=== PATIENT | male | born 1940 | race Caucasian/White ===

== ENCOUNTER 2018-03-30 16:56 | Emergency (ER) | payer MEDICARE, OTHER, SELFPAY ==
[2018-03-30 17:09] VITALS: BP 138/83; PULSE 84; RESP 18; TEMP 36.9; O2SAT 99
--- NOTE | 2018-03-30 19:11 | ED_ITS ---
HPI - Epistaxis General Chief complaint: Nasal Problem Stated complaint: CAN'T STOP NOSE BLEED Time Seen by Provider: 03/30/18 17:40 Source: patient Mode of arrival: ambulatory Limitations: no limitations History of Present Illness HPI Narrative: Patient is a 77-year-old male presenting with nose bleed off of a left eye. His eye lactic she says the bleeding for the last 3 hr. He cannot get it to stop. It is not dripping down his throat he has no trouble breathing. MD complaint: epistaxis Location: left nostril Related Data Previous Rx's Medication Instructions Recorded amoxicillin 500 mg PO TID 7 Days #21 cap 03/30/18 Review of Systems Review of Systems GENERAL: Denies chills,fever HEENT: See HPI RESPIRATORY: Denies dyspnea, cough, wheezing CARDIOVASCULAR: Denies chest pain, palpitations GASTROINTESTINAL: Denies nausea, vomiting MUSCULOSKELETAL: Denies extremity pain, injury SKIN: No rash, no laceration, no pruritus NEUROLOGIC: Denies weakness, dizziness, headache, numbness 8 point review of systems is negative except for those stated above and HPI PFSH Social History Smoking Status: Never smoker Exam Initial Vital Signs Initial Vital Signs: Vital Signs Temperature 98.4 F 03/30/18 17:09 Pulse Rate 84 03/30/18 17:09 Respiratory Rate 18 03/30/18 17:09 Blood Pressure 138/83 03/30/18 17:09 Pulse Oximetry 99 03/30/18 17:09 GENERAL: Well-appearing, well-nourished and in no acute distress. CARDIOVASCULAR: peripheral pulses in tact, cap refill <2 sec RESPIRATORY: No respiratory distress, speaks in full sentences without difficulty EXTREMITIES: Normal range of motion, no clubbing or edema. Neurovascularly intact NEUROLOGICAL: Cranial nerves II through XII grossly intact. Normal gait and speech. SKIN: Warm, dry, no petechiae, no rashes or lesions. HENMT Nose: epistaxis (Left side, no anterior site identified) Procedures Epistaxis Control Nostril: left Nose Prepped With: oxymetazoline Direct Inspection: yes Clots Removed by: blowing nose Cautery Used: none Device Inserted: hemostatic balloon Patient Tolerated Procedure: well Course Consultations Time: 19:09 Vital Signs - 8 hr 03/30/18 17:09 Temperature 98.4 F Pulse Rate 84 Respiratory Rate 18 Blood Pressure 138/83 Pulse Oximetry 99 MDM - Epistaxis MDM Narrative Medical decision making narrative: Initial rhino rocket placed for 30 min bleeding appeared to have stopped when a rocket was removed the bleeding continued. Rhino rocket was replaced. Bleeding stopped. Dr. Christiano GILLILAND was notified. Recommend leaving rhino rocket in for 3 days with amoxicillin and follow up on Tuesday in the office. Patient is given a syringe and instructed on how to deflate if absolutely necessary and a nasal clamp. Discharge Plan Departure Patient Disposition: Home Clinical Impression: Epistaxis Discharge Date/Time: 03/30/18 19:39 Interventions: ED Discharge Assessment Last Done: 03/30/18 19:38 Instructions: Nosebleed Activity Restrictions/Additional Instructions: *You have been diagnosed with nose bleed *What to do: Keep packing in for 2-3 days *Continue to take medications as directed -amoxicillin 500 mg 3 times a day *Follow up with ENT on Tuesday, call 1st thing Tuesday morning at 8:30 a.m. *Return to ER if you should have persistent ongoing bleeding or any new, worsening or concerning symptoms Prescriptions: New amoxicillin 500 mg capsule 500 mg PO TID 7 Days Qty: 21 RF: 0 Referrals: [facility] [Outside]
[2018-03-30 19:38] VITALS: BP 137/83; PULSE 57; RESP 16; O2SAT 100
== END 2018-03-30 19:39 | disposition home or self-care (01) ==
PROVIDERS: Emergency Provider Emergency Medicine
DX: R04.0 Epistaxis (principal)
CPT/HCPCS: 99282

== ENCOUNTER 2019-02-19 14:05 | Emergency (ER) | payer MEDICARE, OTHER, SELFPAY ==
[2019-02-19 14:08] VITALS: BP 133/73; PULSE 70; RESP 14; TEMP 36.7; O2SAT 99
--- NOTE | 2019-02-19 14:11 | DI.US.S_ITS ---
PROCEDURE: US PERIPH VENOUS LOW EXTREM LT INDICATIONS: LEFT LEG PAIN AND SWELLING TECHNIQUE: Real-time imaging, as well as color and pulse Doppler interrogation, were performed of the lower extremity deep veins from the inguinal ligament to the popliteal fossa. COMPARISON: None. FINDINGS: The common femoral, femoral and popliteal veins are normally compressible, and free of intraluminal thrombus. Color and pulse Doppler demonstrate normal phasic intraluminal flow. There is normal augmentation response to distal compression maneuver. There is an ovoid area of decreased echogenicity and is moderately heterogeneous and does not demonstrate internal vascularity that measures 2.3 x 1.9 x 1.1 cm it is located along the left lateral aspect of the lower leg. IMPRESSION: 1. No evidence of left lower extremity deep vein thrombosis. 2. Small intramuscular hematoma versus intramuscular partial-thickness tearing involving the lateral left lower leg at the area of concern. MRI with contrast would be helpful for confirmation, if indicated. Dictated by: Dario Ochoa M.D. on 02/19/2019 at 14:31 Approved by: Dario Ochoa M.D. on 02/19/2019 at 14:32
--- NOTE | 2019-02-19 16:02 | ED.EXTPRO ---
HPI - Extremity Problem <ELISEO Lind - Last Filed: 02/20/19 02:26> General Chief complaint: Extremity Problem,Nontraumatic Stated complaint: Thinks torn muscle in Lt calf Time Seen by Provider: 02/19/19 15:14 Source: patient Mode of arrival: ambulatory Limitations: no limitations History of Present Illness HPI Narrative: This is a 78-year-old, who is very active, nonsmoker, with history of CVAs presents with left lateral calf pain, swelling, redness for the last 4 days. He takes daily Plavix and baby aspirin since his stroke 3 years ago. Patient reports he had traveled from [place] to [place] for camping trip involved in long distance bike riding. He reports his pain is increased with dorsiflex of left foot. He denies any open wound or trauma/injuries in left leg. The patient reports pain started after riding bike for a long distance. He does not reports fever, chills, nausea, vomiting, short of breath, chest pain, dizziness. The patient reports the pain and swelling had improved since the initial onset. He reports was concerned for DVT and is here for an evaluation. His primary care physician is at [facility]. Related Data Allergies Allergy/AdvReac Type Severity Reaction Status Date / Time No Known Drug Allergies Allergy Verified 02/19/19 14:11 Review of Systems <ELISEO Lind - Last Filed: 02/20/19 02:26> Review of Systems General: Denies fever, chills, fatigue, malaise, sweats. HEENT: Denies sinus pain, ear pain, sore throat, difficulty swallowing, dizziness. Respiratory: Denies dyspnea, cough, wheezing, hemoptysis, sputum. Cardiovascular: Denies chest pain, palpitations, orthopnea, edema. Gastrointestinal: Denies nausea, vomiting, abdominal pain, diarrhea, constipation, melena. : Denies dysuria, frequency, incontinence, hematuria, urinary retention. Musculoskeletal: see HPI Neurologic: Denies weakness, headache, numbness, change in speech, confusion, seizures, incoordination. Psychiatric: No concerning psychosocial issues. 12-point review of systems is negative except for those stated above. PFSH <ELISEO Lind - Last Filed: 02/20/19 02:26> Medical History (Updated 02/19/19 @ 16:15 by ELISEO Lind) Hyperlipidemia (Acute) BPH (benign prostatic hyperplasia) (Acute) Stroke (Acute) Colon cancer (Inactive) Surgical History (Updated 02/19/19 @ 16:06 by ELISEO Lind) S/P partial resection of colon (Chronic) Social History Smoking Status: Never smoker Social History Smoking Status: Never smoker Exam <ELISEO Lind - Last Filed: 02/20/19 02:26> Narrative Exam Narrative: GEN: Alert, oriented x 3, well appearing and nourished, and in no acute distress. Head: Normal cephalic, atraumatic. No scalp or temporal tenderness, palpable mass or rash. EYES: Pupils are equal, round, and reactive to light and accommodation. Extraocular muscles are intact bilaterally. There is no subconjunctival hemorrhage, exudate and sclera non-icteric. ENT: Bilateral auditory canals and tympanic membranes. Nose without bleeding, purulent discharge. Mucous membrane moist, no mucosal lesion. Throat without erythema, tonsillar hypertrophy or exudate. Uvula in midline, airway patent. Neck: Trachea in midline. No JVD, non-tender without lymphadenopathy. No masses or thyroid megaly. Supple, non-tender and meningeal signs. CARDIAC: Normal regular rate and rhythm without murmurs, gallops, or rubs. No chest wall tenderness. No cyanosis or pallor. Capillary refill is less than 2 seconds. No carotid bruits. RESPIRATORY: Lungs are cleat to auscultate bilaterally. No cough, wheezes, rales, or rhonchi. No stridor, respiratory distress, increase work of breathing, or accessary muscle used. ABD: Abdomen soft, nontender and non-distended. No guarding or rebound tenderness to palpate. Bowel sounds are normal in all 4 quadrants. There is no palpable masses or organomegaly. EXT: Full painless ROM of all extremities with no loss of sensation, strength. L calf with very mild edema. Passive ROM of dorsiflex of L foot increases L calf pain. Bilateral doral pedal pulses are equal. SKIN: Warm, dry, tanned skin. No erythema, lesions or rash noted. BACK: Nontender without deformity or crepitance. No flank tenderness. NEUROLOGICAL: Alert and oriented to place, time and person. Sensation and motor function intact bilaterally. No facial droops, dysphasia. PSYCHIATRIC: Good judgement and reason, without hallucinations, abnormal affect or abnormal behaviors during the examination. Patient is not suicidal. Initial Vital Signs Initial Vital Signs: Vital Signs Temperature 98.1 F 02/19/19 14:08 Pulse Rate 70 02/19/19 14:08 Respiratory Rate 14 02/19/19 14:08 Blood Pressure 133/73 02/19/19 14:08 Pulse Oximetry 99 02/19/19 14:08 <Kobe Ponce DO - Last Filed: 02/21/19 00:07> Initial Vital Signs Initial Vital Signs: Vital Signs Temperature 98.1 F 02/19/19 14:08 Pulse Rate 70 02/19/19 14:08 Respiratory Rate 14 02/19/19 14:08 Blood Pressure 133/73 02/19/19 14:08 Pulse Oximetry 99 02/19/19 14:08 Course <ELISEO Lind - Last Filed: 02/20/19 02:26> Course Narrative: The patient was evaluated with Peripheral ultrasound in the left lower extremity given the long distance travel by car and patient reported left calf pain, swelling, redness without obvious skin injuries or signs of infection while the patient was waiting for unassigned room. Patient reports the swelling and discomfort have been improved since the onset. He has been using ice packs which seems to help with discomfort. Orders Ordered: ED Orders 02/19/19 14:11 US periph venous low extrem lt Stat Vital Signs - 8 hr 02/19/19 14:08 Temperature 98.1 F Pulse Rate 70 Respiratory Rate 14 Blood Pressure 133/73 Pulse Oximetry 99 <Kobe Ponce DO - Last Filed: 02/21/19 00:07> Orders Ordered: ED Orders 02/19/19 14:11 US periph venous low extrem lt Stat Vital Signs - 8 hr 02/19/19 14:08 Temperature 98.1 F Pulse Rate 70 Respiratory Rate 14 Blood Pressure 133/73 Pulse Oximetry 99 MDM - Extremity (Nontraumatic) <ELISEO Lind - Last Filed: 02/20/19 02:26> Differential Diagnosis Likely cellulitis, lower extremity edema, deep vein thrombosis of lower extremity and other (L calf muscle strain) Medical Records Attestation: I reviewed the patient's medical records. Imaging Data Venous US: Radiologist's impression: [address] [address] Ultrasound Report Signed Patient: DANIEL NUNO KMR#: [id number] : 2Acct:[id number] Age/Sex: 78 / MDate of Service: 02/19/19 Loc: ED Accession Number: [id number] Procedure: US periph venous low extrem lt Ordering Provider: Kobe Ponce D.O. PROCEDURE: US PERIPH VENOUS LOW EXTREM LT INDICATIONS: LEFT LEG PAIN AND SWELLING TECHNIQUE: Real-time imaging, as well as color and pulse Doppler interrogation, were performed of the lower extremity deep veins from the inguinal ligament to the popliteal fossa. COMPARISON: None. FINDINGS: The common femoral, femoral and popliteal veins are normally compressible, and free of intraluminal thrombus. Color and pulse Doppler demonstrate normal phasic intraluminal flow. There is normal augmentation response to distal compression maneuver. There is an ovoid area of decreased echogenicity and is moderately heterogeneous and does not demonstrate internal vascularity that measures 2.3 x 1.9 x 1.1 cm it is located along the left lateral aspect of the lower leg. IMPRESSION: 1. No evidence of left lower extremity deep vein thrombosis. 2. Small intramuscular hematoma versus intramuscular partial-thickness tearing involving the lateral left lower leg at the area of concern. MRI with contrast would be helpful for confirmation, if indicated. Dictated by: Dario Ochoa M.D. on 02/19/2019 at 14:31 Approved by: Dario Ochoa M.D. on 02/19/2019 at 14:32 [facility] Narrative Medical decision making narrative: This is a 78-year-old male patient complaining of left lateral calf pain for 4 days after bone duration of bike riding. He had traveled from [place] to [place] by a car 4 days prior to this. Ultrasound test was done and it indicates no DVT but possible small intramuscular hematoma versus intramuscular partial thickness tearing involving his calf muscle. The patient reports pain is about 1/10 at this time and there was no significant swelling appreciated per exam. Patient was advised to continue with his daily medications including Plavix and aspirin for history of CVAs. Patient was advised to decrease significant activity unaffected lack for next couple of days and use cool or warm pack as needed for comfort, swelling, and to promote healing. It is okay to take [id number] Tylenol and/or Motrin for this. Patient was advised to watch for increasing calf pain, tingling numbness, decreased sensation on left lower extremity, weakness, chest pain, breathing trouble and return to ED for evaluation. Otherwise, patient was suggested to follow up with his primary care provider if the pain is persistent for further imaging test. The patient agree with the plan of treatment and no further questions expressed. <Kobe Ponce DO - Last Filed: 02/21/19 00:07> Imaging Data Venous US: Radiologist's impression: [address] [address] Ultrasound Report Signed Patient: DANIEL NUNO KMR#: [id number] : 2Acct:[id number] Age/Sex: 78 / MDate of Service: 02/19/19 Loc: ED Accession Number: [id number] Procedure: US periph venous low extrem lt Ordering Provider: Kobe Ponce D.O. PROCEDURE: US PERIPH VENOUS LOW EXTREM LT INDICATIONS: LEFT LEG PAIN AND SWELLING TECHNIQUE: Real-time imaging, as well as color and pulse Doppler interrogation, were performed of the lower extremity deep veins from the inguinal ligament to the popliteal fossa. COMPARISON: None. FINDINGS: The common femoral, femoral and popliteal veins are normally compressible, and free of intraluminal thrombus. Color and pulse Doppler demonstrate normal phasic intraluminal flow. There is normal augmentation response to distal compression maneuver. There is an ovoid area of decreased echogenicity and is moderately heterogeneous and does not demonstrate internal vascularity that measures 2.3 x 1.9 x 1.1 cm it is located along the left lateral aspect of the lower leg. IMPRESSION: 1. No evidence of left lower extremity deep vein thrombosis. 2. Small intramuscular hematoma versus intramuscular partial-thickness tearing involving the lateral left lower leg at the area of concern. MRI with contrast would be helpful for confirmation, if indicated. Dictated by: Dario Ochoa M.D. on 02/19/2019 at 14:31 Approved by: Dario Ochoa M.D. on 02/19/2019 at 14:32 Discharge Plan Departure Patient Disposition: Home Clinical Impression: Pain of left calf Discharge Date/Time: 02/19/19 16:19 Interventions: ED Discharge Assessment Last Done: 02/19/19 16:14 Instructions: DI for Leg Pain Activity Restrictions/Additional Instructions: You have been diagnosed with L lower calf pain. US test was negative and no indication for blood clots. It indicates small intramuscular hematoma vs. intramuscular partial thickness tear ]. What to do: *Take your medications as directed. You could add [id number], Tylenol as needed for pain. Warm or cold pack would help for healing. *Follow up with your primary care provider in 2-3 days, call for an appointment. Let them know you were seen in the ED and that we asked you to be seen in follow up. *Return to ED if you have any new, worsening, or concerning symptoms, such as [ chest pain, breathing difficulty, fever, increasing pain or any other concerns ]. Referrals: matteo taylor [Other] <Kobe Ponce, - Last Filed: 02/21/19 00:07> Cosign ED Attending Zoey Attestation: I was immediately available in the department for consultation. Documentation has been reviewed. I agree with assessment and plan.
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
[2019-02-19 16:14] VITALS: BP 132/80; PULSE 55; RESP 20; O2SAT 98
== END 2019-02-19 16:19 | disposition home or self-care (01) ==
PROVIDERS: Emergency Provider Nurse Practitioner Family
DX: M79.662 Pain in left lower leg (principal); Z86.73 Personal history of transient ischemic attack (TIA), and cerebral infarction without residual deficits
CPT/HCPCS: 93971; 99282; 99283

== ENCOUNTER 2020-05-12 15:17 | Emergency (ER) | payer MEDICARE, OTHER, SELFPAY ==
[2020-05-12 15:19] VITALS: BP 142/63; PULSE 72; RESP 16; TEMP 36.4; O2SAT 100; BMI 25.5
[2020-05-12 15:32] VITALS: BP 136/77; PULSE 68; O2SAT 99
--- NOTE | 2020-05-12 15:46 | DI.RAD.S_ITS ---
PROCEDURE: XR HIP W PEL IF DONE RT 2V INDICATIONS: R hip pain post fall TECHNIQUE: AP pelvis with lateral view(s) of the right hip(s). COMPARISON: None. FINDINGS: Bones: No fracture. Moderate-severe bilateral hip joint degeneration, right greater than left. Lower lumbar spondylosis and facet arthropathy. Degenerative changes seen at the pubis symphysis. Soft tissues: The visualized bowel gas pattern is normal. No suspicious soft tissue calcifications. IMPRESSION: Bilateral hip joint degeneration and a lower lumbar spondylosis. No fracture identified Dictated by: Angel Mejia M.D. on 05/12/2020 at 16:28 Approved by: Angel Mejia M.D. on 05/12/2020 at 16:30
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
[2020-05-12 16:03] VITALS: PULSE 60; O2SAT 95
[2020-05-12 16:04] VITALS: BP 117/64; PULSE 60; O2SAT 97
[2020-05-12] MEDS: BACITRACIN OINT 0.9 GM PCKT 1 APPLIC TOP (17:02)
[2020-05-12 17:11] VITALS: BP 128/72; PULSE 57; RESP 14; O2SAT 99
== END 2020-05-12 17:11 | disposition home or self-care (01) ==
PROVIDERS: Emergency Provider Nurse Practitioner
DX: S70.11XA Contusion of right thigh, initial encounter (principal); S50.311A Abrasion of right elbow, initial encounter; V19.9XXA Pedal cyclist (driver) (passenger) injured in unspecified traffic accident, initial encounter; Z79.82 Long term (current) use of aspirin; Z79.01 Long term (current) use of anticoagulants
CPT/HCPCS: 73502; 99283

== ENCOUNTER 2020-09-05 20:30 | Emergency (ER) | payer MEDICARE, OTHER, SELFPAY ==
--- NOTE | 2020-09-05 20:38 | DI.RAD.S_ITS ---
PROCEDURE: XR ANKLE LT MIN 3V INDICATIONS: pain in lateral ankle, twisted a few days ago TECHNIQUE: 3 views of the ankle were acquired. COMPARISON: None. FINDINGS: Bones: There is no fracture or dislocation. Ankle mortise is intact. Mild tibiotalar and talonavicular joint degenerative changes. Soft tissues: Diffuse soft tissue swelling with moderate to marked swelling along the lateral aspect. Benign-appearing soft tissue calcifications are noted within the posterior lower leg. IMPRESSION: Soft tissue swelling without evidence of an acute osseous abnormality. Agree with preliminary report. Dictated by: Levi Newell D.O. on 09/06/2020 at 6:59 Approved by: Levi Newell D.O. on 09/06/2020 at 7:01
[2020-09-05 20:39] VITALS: BP 155/75; PULSE 82; RESP 17; TEMP 36.2; O2SAT 99; BMI 25.7
--- NOTE | 2020-09-05 20:50 | ED.LOWEXIN ---
HPI - Extremity Injury (Lower) General Chief Complaint: Extremity Injury, Lower Stated Complaint: TWISTED LEFT ANKLE ON BLOOD THINNERS Time Seen by Provider: 09/05/20 20:30 Source: patient Mode of arrival: Ambulatory Limitations: no limitations History of Present Illness HPI Narrative: 80M nonsmoker with prior stroke and on anticoagulation presents with a chief complaint of a left ankle injury on Tuesday and concern about swelling. He states that he was walking when he twisted his left ankle on Tuesday and denies much in the way of pain and states he is getting around without difficulty but is concerned about the swelling on his lateral ankle given the fact that it has been 5 days since his injury and he takes blood thinners. He denies any numbness, tingling or weakness. He denies any chest pain or shortness of breath. MD complaint: ankle injury Onset (ago): day(s) Type of Injury: inversion Place: home Severity: mild Relieving factors: rest Exacerbating factors: movement Context: walking Associated symptoms: swelling Other symptoms: none Related Data Allergies Allergy/AdvReac Type Severity Reaction Status Date / Time No Known Drug Allergies Allergy Verified 05/12/20 15:24 Review of Systems Constitutional Constitutional: Denies chills, Denies fatigue, Denies fever(s), Denies frequent falls, Denies lethargy and Denies weakness Eyes Eyes: Denies change in vision, Denies eye discharge, Denies irritation and Denies loss of vision ENT Ears, Nose, Mouth, and Throat: Denies change in voice, Denies dizziness, Denies neck pain, Denies sore throat and Denies throat swelling Cardiovascular Cardiovascular: Denies chest pain, Denies irregular heart rhythm, Denies lightheadedness, Denies palpitations, Denies dyspnea, Denies dyspnea on exertion and Denies orthopnea Respiratory Respiratory: Denies cough, Denies dyspnea, Denies dyspnea on exertion and Denies wheezing Gastrointestinal Gastrointestinal: Denies abdominal pain, Denies change in bowel habits, Denies diarrhea, Denies nausea and Denies vomiting Musculoskeletal Musculoskeletal: Reports joint swelling, Denies neck pain and Denies numbness Integumentary/Breasts Skin/Breast: Denies pruritus, Denies erythema, Denies rash and Denies wounds Neurologic Neurologic: Denies behavioral changes, Denies confusion, Denies dizziness, Denies frequent falls, Denies loss of vision, Denies numbness and Denies weakness Psychiatric Psychiatric: Denies anxiety, Denies behavioral changes, Denies confusion, Denies depression, Denies homicidal ideation and Denies suicidal ideation Endocrine Endocrine: Denies fatigue, Denies flushing and Denies palpitations Hematologic/Lymphatic Hematologic/Lymphatic: Denies easy bruising Allergic/Immunologic Allergic/Immunologic: Denies urticaria, Denies throat swelling and Denies wheezing Patient History Medical History BPH (benign prostatic hyperplasia) Colon cancer Hyperlipidemia Stroke Surgical History S/P partial resection of colon Social History Smoking Status: Never smoker Smoking Status: Never smoker alcohol intake frequency: 0-2 drinks per day Substance Use Type: does not use Exam Narrative Exam Narrative: GEN: AOx3 and in mild distress EYES: Pupils are equal, round, and reactive to light and accommodation. Extraoccular muscles are intact bilaterally. There is no subconjunctival hemorrhage or exudate. CHEST: Lungs are clear to auscultation bilaterally and free of wheezes, rales, or rhonchi. Heart rate is regular rhythm, there are no murmurs, clicks, rubs, or gallops. There is no chest wall tenderness. ABD: Abdomen is soft and nontender. There is no guarding or rebound. Bowel sounds are normal in all 4 quadrants. There is no mass or organomegaly. EXT: Mild swelling to left lateral ankle overlying lateral malleolus, no bony tenderness. No pain to palpation of bony foot. No numbness, tingling. Cap refill less than 2 seconds. Closed, isolated and neurovascularly intact SKIN: Warm, pink, and dry. No erythema or rash Course Orders Ordered: ED Orders 09/05/20 20:38 XR ankle LT min 3V Stat MDM - Extremity Injury (Lower) Imaging Data Extremity x-ray #1: Radiologist's Impression: No Fx Discharge Plan Departure Patient Disposition: Home Clinical Impression: Ankle sprain Qualifiers: Encounter type: initial encounter Laterality: left Instructions: DI for Ankle Sprain Activity Restrictions/Additional Instructions: *You have been diagnosed with [left ankle sprain, very reassuring physical exam with x-ray demonstrating no fracture] *What to do: * continue to take medications as directed *Follow up with your primary care provider in 2-3 days, call for an appointment. Let them know you were seen in the Emergency Department and that we ask that you be seen in follow up *Return to ER if you should have any new, worsening or concerning symptoms, such as [pain, redness, fever >101F, shaking chills, or other bothersome symptoms *Elevate your foot/ankle above the level of the heart multiple times daily to help with swelling. ]
== END 2020-09-05 21:59 | disposition home or self-care (01) ==
PROVIDERS: Emergency Provider Emergency Medicine
DX: S93.402A Sprain of unspecified ligament of left ankle, initial encounter (principal); X50.1XXA Overexertion from prolonged static or awkward postures, initial encounter; Z79.01 Long term (current) use of anticoagulants; E78.5 Hyperlipidemia, unspecified; N40.0 Benign prostatic hyperplasia without lower urinary tract symptoms
CPT/HCPCS: 73610; 99281; 99283

== ENCOUNTER → 2021-06-29 16:50 | Outpatient (CLI) | payer MEDICARE, OTHER, SELFPAY ==
[2021-06-29 17:36] LABS: Add Manual Diff / Slide Review NO; Basophils Absolute Auto 100 /uL (0-100); Basophils Percent Auto 1.1 % (0-2); Eosinophils Absolute Auto 100 /uL (0-450); Eosinophils Percent Auto 1.2 % (2-4); Hematocrit 42.4 % (41-53); Hemoglobin 14.1 g/dL (13.5-17.5); Lymphocytes Absolute Auto 1300 /uL (1100-4500); Lymphocytes Percent Auto 25.8 % (25-40); Mean Corpuscular HGB Conc 33.2 % (30-36); Mean Corpuscular Hemoglobin 30.6 PG (26-34); Mean Corpuscular Volume 92.1 fL (80-100); Monocytes Absolute Auto 500 /uL (0-900); Monocytes Percent Auto 9.5 % (3-14); Neutrophils Absolute Auto 3000 /uL (1500-7000); Neutrophils Percent Auto 62.4 % (50-75); Platelet Count 125 X10^3/uL (150-400); White Blood Cell Count 4.9 X10^3/uL (4.5-11.0)
[2021-06-29 17:48] LABS: Alanine Aminotransferase 28 IU/L (<50); Albumin 4.3 g/dL (3.5-5.0); Alkaline Phosphatase 56 U/L (38-126); Aspartate Aminotransferase 40 IU/L (17-59); BUN Creatinine Ratio 15.7 (6-22); Bilirubin Total 0.8 mg/dL (0.2-1.3); Blood Urea Nitrogen 17 mg/dL (9-20); Calcium 9.4 mg/dL (8.4-10.2); Carbon Dioxide 23 mmol/L (22-32); Chloride 107 mmol/L (98-107); Cholesterol 170 mg/dL (140-199); Estimated Glomerular Filt Rate > 60.0 mL/min (>60); Globulin 2.2 g/dL (1.7-4.1); Glucose 96 mg/dL (80-110); HDL Cholesterol 66 mg/dL (40-60); HEMOLYSIS 27 (0-50); LDL Cholesterol Calculated 89 mg/dL (<100); Potassium 4.5 mmol/L (3.4-5.1); Sodium 139 mmol/L (137-145); Total Protein 6.5 g/dL (6.3-8.2); Triglycerides 74 mg/dL (35-150)
[2021-06-29 18:18] LABS: Prostate Specific Antigen Scrn 2.23 ng/mL (0.1-4.0)
[2021-06-29 18:20] LABS: TSH w/ Reflex to FT4 1.54 uIU/mL (0.47-4.68)
== END ==
PROVIDERS: PCP Family Medicine; Referring Provider Family Medicine; Visit Provider Family Medicine
DX: I63.9 Cerebral infarction, unspecified (principal); Z12.5 Encounter for screening for malignant neoplasm of prostate; N40.0 Benign prostatic hyperplasia without lower urinary tract symptoms
CPT/HCPCS: 36415; 80053; 80061; 84443; 85025; G0103

== ENCOUNTER 2021-11-16 12:10 | Day surgery (SDC) | payer MEDICARE, OTHER, SELFPAY ==
--- NOTE | 2021-11-16 | PATH_ITS ---
[facility] Accession Number: [id number] . 01 Material submitted: . PART A: colon - TRANSVERSE POLYP X4 PART B: colon - ASCENDING COLON POLYPS X2 PART C: sigmoid colon - SIGMOID POLYP PART D: rectum - RECTAL POLYP . 02 Diagnosis: A. Transverse Colon Polyps, Biopsies: Tubular adenoma x4. . B. Ascending Colon Polyps, Biopsies: Tubular adenoma x2. . C. Sigmoid Colon Polyp, Biopsy: Tubular adenoma. . D. Rectal Polyp, Biopsy: Tubular adenoma. MRV 11/18/2021 1025 Local . 02 Electronically signed: . Jude Carrillo MD, PhD, Pathologist NPI- [id number] . 01 Gross description: . Part A: TRANSVERSE POLYP X4: Received in formalin are 4 fragment(s) of guajardo, soft tissue measuring 0.2 x 0.2 x 0.2 cm to 0.6 x 0.4 x 0.4 cm submitted entirely in 1 cassette(s) Part B: ASCENDING COLON POLYPS X2: Received in formalin are 2 fragment(s) of guajardo, soft tissue measuring 0.1 x 0.1 x 0.1 cm to 0.2 x 0.2 x 0.2 cm submitted entirely in 1 cassette(s) Part C: SIGMOID POLYP: Received in formalin is 1 fragment(s) of guajardo, soft tissue measuring 0.6 x 0.6 x 0.5 cm submitted entirely in 1 cassette(s) Part D: RECTAL POLYP: Received in formalin is 1 fragment(s) of guajardo, soft tissue measuring 0.6 x 0.5 x 0.5 cm submitted entirely in 1 cassette(s) /DELORIS 11/17/2021 1906 Local . 02 Pathologist provided ICD-10: D12.2, D12.3, D12.5, D12.8 . 02 CPT . 411757, 291537, 477318, [id number] Specimen Comment: A courtesy copy of this report has been sent to [phone] Performed at: 01 [facility] [address] [id number] MD Esvin Archer MD Phone: [phone] Performed at: [address] [place] [id number] [place] [id number] MD Adri Chicas MD Phone: [phone]
[2021-11-16 12:45] LABS: COVID19 -Nasal RAPID Negative (Negative)
[2021-11-16 13:04] VITALS: BP 135/77; PULSE 65; RESP 15; TEMP 36.3; O2SAT 99; BMI 25.7
[2021-11-16] MEDS: SODIUM CHLORIDE 0.9% 1,000 ML 84 ML IV (13:10)
--- NOTE | 2021-11-16 14:15 | PM.HP.1 ---
History of Present Illness History of Present Illness Date Patient Seen: 11/16/21 Time Patient Seen: 14:16 Chief complaint: SDC Narrative: Personal history of colon polyps here for surveillance Patient History Medical History Acne (~1954) BPH (benign prostatic hyperplasia) Chicken pox Colon cancer Hearing loss (~1999) History of colon polyps Hyperlipidemia Malaria (~1966) Measles Mumps (~194) Plantar warts (~1951) Polio (~1949) Stroke (~2015) Thrombocytopenia Tinea pedis Well adult Surgical History Anesthesia S/P partial resection of colon (~1982) Family & Social History Family History Father Cancer Mother Cancer Social History: household members spouse Tobacco & Substance use: Smoking Status Never smoker alcohol intake current alcohol intake frequency 0-2 drinks per day Substance Use Type does not use Meds Home Medications and Allergies Home Medications Medication Instructions Recorded Confirmed Type aspirin 81 mg tablet,delayed 81 mg PO DAILY 10/29/20 11/16/21 History release clopidogrel 75 mg tablet 75 mg PO DAILY #90 tab 11/20/20 11/16/21 Rx ezetimibe 10 mg tablet 10 mg PO DAILY #90 tab 11/20/20 11/16/21 Rx ketoconazole 2 % topical cream 1 applic TOPICAL BID #15 g 06/29/21 11/16/21 Rx pravastatin 10 mg tablet 10 mg PO BEDTIME #90 tab 06/29/21 11/16/21 Rx tamsulosin 0.4 mg capsule See Rx Instructions .ROUTE 11/12/21 11/16/21 Rx .COMPLEX #90 cap Allergies Allergy/AdvReac Type Severity Reaction Status Date / Time No Known Drug Allergies Allergy Verified 11/16/21 13:11 Review of Systems Review of Systems ROS: Yes All systems reviewed with the patient and are negative except as otherwise documented Exam Vital Signs (past 8 hours): - 11/16/21 13:04 Temperature 97.3 F L Pulse Rate 65 Respiratory Rate 15 Blood Pressure 135/77 Pulse Oximetry 99 Oxygen Delivery Method Room Air Const General: cooperative and comfortable Orientation: alert HENMT Head: normocephalic Ears: external ears normal Nose: external nose normal Face and sinus: normal facial exam Mouth: oral mucosae normal Eyes General: appearance normal, both eyes and all related structures Neck Neck: normal visual inspection Chest Chest: normal inspection of the chest Resp Effort & Inspection: normal respiratory effort Cardio Rate: regular rate GI Inspection: normal to inspection Skin General: no rashes or lesions noted and No jaundice Neuro General: patient alert and moves all extremities Cognition: normal cognition Speech: speech normal Extrem General: no pedal edema Psych Appearance: grossly normal Objective Labs Labs: Laboratory Results - last 24 hr 11/16/21 12:25 SARS-CoV-2 (PCR) Negative Assessment & Plan Assessment & Plan narrative: 81-year-old. Personal history of colon polyps. Colonoscopy is pursued today. Time Spent With Patient Critical Care time: I spent a total of [] minutes of critical care time on this patient's care today; this time is exclusive of procedural time.
--- NOTE | 2021-11-16 14:17 | PM.PREOP ---
Pre-operative Note COVID-19 COVID-19 status: Negative Result date/Date tested (Pos, Neg/Pending): 11/16/21 Criteria for continued procedure: Possibility delay results in more complex future surgery or treatment Interval Note History & Physical reviewed/Exam performed by Physician: Yes Changes to H&P: No ASA Class (for procedural sedation): II
--- NOTE | 2021-11-16 15:12 | PM.OP.COLON ---
Operative Date/Time/Diagnoses Date of procedure: 11/16/21 Time of procedure: 15:12 Pre-op diagnosis: Colon polyps history Post-op diagnosis: same Procedure & Clinicians Study performed: Colonoscopy with hot snare polypectomy and cold forceps polypectomy Same procedure as scheduled: Yes Indications: Colon polyp history Surgeon: Jose Daniel Jones Procedure Notes SCOAP/Timeout: Done Procedure in detail: After the risks and benefits were explained, written and verbal informed consent was obtained. The patient was brought into the procedure room and placed into the left lateral decubitus position. No sedation was requested by the patient. Digital rectal examination was accomplished. The scope was introduced into the patient and advanced under direct visualization to the cecum as identified by the appendiceal orifice and ileocecal valve. The scope was slowly withdrawn to carefully examine the mucosa for any defects or lesions. Comprehensive imaging was accomplished throughout the rectum including the dentate line. The colon was decompressed, the scope was then removed from the patient who tolerated the procedure well. Bowel prep adequate Adult colonoscope Scope withdrawal time: 21 minutes Sedation minutes: 39 Complications: none Impression: Patient had extensive diverticulosis starting in the sigmoid extending all the way into ascending colon. Patient had grade 2 internal nonbleeding nonthrombosed hemorrhoids. Navigational was challenging as a consequence of scope looping by the time we arrived in the ascending colon. The patient tolerated the procedure very well despite 0 sedation. In the ascending colon there were 2 diminutive polyps removed with cold forceps. In the transverse colon there were 4 polyps removed with hot snare. These were roughly 6-7 mm each. In the sigmoid colon there was an approximately 7 mm short pedunculated polyp removed with hot snare and in the rectum there was a short pedunculated 6 mm polyp removed with hot snare as well. Endoscopic diagnosis 1. Multiple colon polyps 2. Diverticulosis 3. Hemorrhoids grade 2 Post-procedure Recommendations: Colonoscopy in 3 years Plan for aftercare: 1. Await histopathology 2. Repeat colonoscopy is suggested for 3 years time. Disposition: PACU
[2021-11-16 15:34] VITALS: BP 141/77; PULSE 68; RESP 16; TEMP 36.6; O2SAT 99
--- NOTE | 2021-11-16 15:47 | SUR.PHASEII ---
Stable Phase 2, pt left in stable condition Johnniee called, escorted pt out ambulatory per pt request.
== END 2021-11-16 15:40 | disposition home or self-care (01) ==
PROVIDERS: PCP Family Medicine; Referring Provider Internal Medicine Gastroenterology; Visit Provider Internal Medicine Gastroenterology
PROC: 0DJD8ZZ Inspection of Lower Intestinal Tract, Via Natural or Artificial Opening Endoscopic (ICD-10-PCS; CPT 45378; principal; 2021-11-16 13:30)
DX: D12.2 Benign neoplasm of ascending colon (principal); Z12.11 Encounter for screening for malignant neoplasm of colon; D12.3 Benign neoplasm of transverse colon; D12.5 Benign neoplasm of sigmoid colon; D12.8 Benign neoplasm of rectum; K57.30 Diverticulosis of large intestine without perforation or abscess without bleeding; K64.1 Second degree hemorrhoids; Z86.010 Personal history of colon polyps; Z20.822 Contact with and (suspected) exposure to COVID-19
CPT/HCPCS: 45385; 45380; 87635; C9803

== ENCOUNTER → 2022-05-29 10:36 | Outpatient (CLI) | payer MEDICARE, OTHER, SELFPAY ==
[2022-05-29 12:13] LABS: Add Manual Diff / Slide Review NO; Basophils Absolute Auto 0 /uL (0-100); Basophils Percent Auto 0.6 % (0-2); Eosinophils Absolute Auto 100 /uL (0-450); Eosinophils Percent Auto 1.6 % (2-4); Hematocrit 41.2 % (41-53); Hemoglobin 13.9 g/dL (13.5-17.5); Lymphocytes Absolute Auto 1200 /uL (1100-4500); Lymphocytes Percent Auto 25.4 % (25-40); Mean Corpuscular HGB Conc 33.8 % (30-36); Mean Corpuscular Hemoglobin 30.7 PG (26-34); Mean Corpuscular Volume 90.8 fL (80-100); Monocytes Absolute Auto 400 /uL (0-900); Monocytes Percent Auto 8.9 % (3-14); Neutrophils Absolute Auto 3000 /uL (1500-7000); Neutrophils Percent Auto 63.5 % (50-75); Platelet Count 119 X10^3/uL (150-400); Red Blood Cell Count 4.54 X10^6/uL (4.5-5.9); Red Cell Distribution Width 13.5 % (11.6-14.8); White Blood Cell Count 4.7 X10^3/uL (4.5-11.0)
[2022-05-29 13:59] LABS: Alanine Aminotransferase 30 IU/L (<50); Albumin Globulin Ratio 1.7 (1.0-2.8); Alkaline Phosphatase 66 U/L (38-126); Aspartate Aminotransferase 37 IU/L (17-59); Bilirubin Total 0.8 mg/dL (0.2-1.3); Blood Urea Nitrogen 19 mg/dL (9-20); Calcium 9.3 mg/dL (8.4-10.2); Carbon Dioxide 25 mmol/L (22-32); Chloride 105 mmol/L (98-107); Cholesterol 171 mg/dL (140-199); Estimated Glomerular Filt Rate > 60 mL/min (>60); Globulin 2.3 g/dL (1.7-4.1); Glucose 91 mg/dL (80-110); HDL Cholesterol 60 mg/dL (40-60); HEMOLYSIS < 15 (0-50); LDL Cholesterol Calculated 99 mg/dL (<100); Potassium 4.4 mmol/L (3.4-5.1); Sodium 138 mmol/L (137-145); Total Protein 6.3 g/dL (6.3-8.2); Triglycerides 62 mg/dL (35-150)
[2022-05-29 14:25] LABS: Prostate Specific Antigen 2.96 ng/mL (0.10-4.00)
== END ==
PROVIDERS: PCP Family Medicine; Referring Provider Family Medicine; Visit Provider Family Medicine
DX: E78.5 Hyperlipidemia, unspecified (principal); N40.0 Benign prostatic hyperplasia without lower urinary tract symptoms; D69.6 Thrombocytopenia, unspecified
CPT/HCPCS: 36415; 80053; 80061; 84153; 85025

== ENCOUNTER → 2022-08-16 11:48 | Outpatient (CLI) | payer MEDICARE, OTHER, SELFPAY ==
[2022-08-16 12:45] LABS: Add Manual Diff / Slide Review NO; Basophils Absolute Auto 0 /uL (0-100); Basophils Percent Auto 0.8 % (0-2); Eosinophils Absolute Auto 100 /uL (0-450); Eosinophils Percent Auto 1.5 % (2-4); Hematocrit 42.6 % (41-53); Hemoglobin 14.1 g/dL (13.5-17.5); Lymphocytes Absolute Auto 1200 /uL (1100-4500); Lymphocytes Percent Auto 24.1 % (25-40); Mean Corpuscular HGB Conc 33.1 % (30-36); Mean Corpuscular Hemoglobin 30.5 PG (26-34); Mean Corpuscular Volume 92.4 fL (80-100); Monocytes Absolute Auto 500 /uL (0-900); Monocytes Percent Auto 10.7 % (3-14); Neutrophils Absolute Auto 3100 /uL (1500-7000); Neutrophils Percent Auto 62.9 % (50-75); Platelet Count 129 X10^3/uL (150-400); Red Blood Cell Count 4.62 X10^6/uL (4.5-5.9); Red Cell Distribution Width 13.9 % (11.6-14.8)
== END ==
PROVIDERS: PCP Family Medicine; Referring Provider Family Medicine; Visit Provider Family Medicine
DX: D69.6 Thrombocytopenia, unspecified (principal)
CPT/HCPCS: 36415; 85025

== ENCOUNTER → 2023-01-28 09:53 | Outpatient (CLI) | payer MEDICARE, OTHER, SELFPAY ==
--- NOTE | 2023-01-28 09:54 | DI.RAD.S_ITS ---
PROCEDURE: XR HIP W PEL IF DONE RT 2V INDICATIONS: Right hip pain in groin TECHNIQUE: 2 views of the hip were acquired. COMPARISON: [facility], CR, XR HIP W PEL IF DONE RT 2V, 05/12/2020, 15:44. FINDINGS: Bones: No fractures or dislocations. No suspicious bony lesions. The visualized pelvic ring appears intact. Mild nonuniform joint space narrowing with osteophytic lipping of the acetabuli. No significant subchondral cystic change. Soft tissues: No suspicious soft tissue calcifications or masses. IMPRESSION: Mild bilateral hip osteoarthritis, right greater than left. Dictated by: Marques Bourgeois M.D. on 01/28/2023 at 12:09 Approved by: Marques Bourgeois M.D. on 01/28/2023 at 12:09
== END ==
PROVIDERS: PCP Family Medicine; Referring Provider Physician Assistant; Visit Provider Physician Assistant
DX: M25.551 Pain in right hip (principal); M16.0 Bilateral primary osteoarthritis of hip
CPT/HCPCS: 73502

== ENCOUNTER → 2023-05-26 09:50 | Outpatient (CLI) | payer MEDICARE, OTHER, SELFPAY ==
[2023-05-26 10:51] LABS: Add Manual Diff / Slide Review NO; Basophils Absolute Auto 0 /uL (0-100); Basophils Percent Auto 0.9 % (0-2); Eosinophils Absolute Auto 100 /uL (0-450); Hemoglobin 13.8 g/dL (13.5-17.5); Lymphocytes Absolute Auto 1300 /uL (1100-4500); Lymphocytes Percent Auto 30.2 % (25-40); Mean Corpuscular HGB Conc 33.6 % (30-36); Mean Corpuscular Hemoglobin 30.8 PG (26-34); Mean Corpuscular Volume 91.4 fL (80-100); Monocytes Absolute Auto 400 /uL (0-900); Monocytes Percent Auto 10.3 % (3-14); Neutrophils Absolute Auto 2400 /uL (1500-7000); Neutrophils Percent Auto 56.6 % (50-75); Platelet Count 121 X10^3/uL (150-400); Red Blood Cell Count 4.48 X10^6/uL (4.5-5.9); White Blood Cell Count 4.3 X10^3/uL (4.5-11.0)
[2023-05-26 11:02] LABS: Alanine Aminotransferase 21 IU/L (<50); Albumin Globulin Ratio 1.7 (1.0-2.8); Alkaline Phosphatase 54 U/L (38-126); Aspartate Aminotransferase 27 IU/L (17-59); BUN Creatinine Ratio 23.7 (6-22); Bilirubin Total 0.4 mg/dL (0.2-1.3); Blood Urea Nitrogen 23 mg/dL (9-20); Calcium 9.6 mg/dL (8.4-10.2); Carbon Dioxide 24 mmol/L (22-32); Chloride 106 mmol/L (98-107); Cholesterol 179 mg/dL (140-199); Estimated Glomerular Filt Rate > 60 mL/min (>60); Globulin 2.3 g/dL (1.7-4.1); Glucose 93 mg/dL (80-110); HDL Cholesterol 60 mg/dL (40-60); HEMOLYSIS < 15 (0-50); LDL Cholesterol Calculated 105 mg/dL (<100); Potassium 4.6 mmol/L (3.4-5.1); Sodium 137 mmol/L (137-145); Total Protein 6.3 g/dL (6.3-8.2); Triglycerides 68 mg/dL (35-150)
[2023-05-26 11:32] LABS: Prostate Specific Antigen 2.41 ng/mL (0.10-4.00)
== END ==
PROVIDERS: PCP Family Medicine; Referring Provider Family Medicine; Visit Provider Family Medicine
DX: Z00.00 Encounter for general adult medical examination without abnormal findings (principal); D69.6 Thrombocytopenia, unspecified; E78.00 Pure hypercholesterolemia, unspecified; N40.0 Benign prostatic hyperplasia without lower urinary tract symptoms; I10 Essential (primary) hypertension
CPT/HCPCS: 36415; 80053; 80061; 84153; 85025

== ENCOUNTER → 2023-12-15 13:17 | Outpatient (CLI) | payer MEDICARE, OTHER, SELFPAY ==
--- NOTE | 2023-12-15 13:18 | DI.RAD.S_ITS ---
PROCEDURE: XR HIP W PEL IF DONE RT 2V INDICATIONS: Pain in right hip TECHNIQUE: AP pelvis with lateral view(s) of the right hip(s). COMPARISON: [facility], , XR HIP W PEL IF DONE RT 2V, 01/28/2023, 9:51. FINDINGS: Bones: No fractures or dislocations. Pelvic ring appears intact. No suspicious bony lesions. Mild bilateral hip joint degeneration, right greater than left. Soft tissues: The visualized bowel gas pattern is normal. No suspicious soft tissue calcifications. IMPRESSION: No acute bony abnormality. Right greater than left mild hip joint degeneration, not significantly changed since 01/28/2023. Approved by: Shira Rebolledo M.D.,Ph.D. on 12/15/2023 at 22:21
== END ==
PROVIDERS: PCP Family Medicine; Referring Provider Family Medicine; Visit Provider Family Medicine
DX: M25.551 Pain in right hip (principal); M16.0 Bilateral primary osteoarthritis of hip
CPT/HCPCS: 73502

== ENCOUNTER → 2024-01-09 12:36 | Outpatient (CLI) | payer MEDICARE, OTHER, SELFPAY ==
--- NOTE | 2024-01-09 12:39 | DI.RAD.S_ITS ---
PROCEDURE: FL HIP INJECTION MR/CT RT INDICATIONS: Persistent right hip pain TECHNIQUE: The indications, alternatives, benefits, risks, and complications of the procedure were explained to the patient. Written informed consent was obtained and placed in the chart. The hip was examined fluoroscopically with the legs fixed in slight internal rotation, and a site for needle placement chosen for entry into the hip joint from an anterior approach. Care was taken to locate the common femoral artery and vein beforehand. The skin was prepped and draped in a sterile fashion, and 1% Lidocaine infiltrated from skin down to joint capsule. A spinal needle was inserted into the joint, and a small amount of iodinated contrast media injected to confirm intra-articular placement of the needle tip. This was followed by approximately 10 mL dilute solution of a gadolinium containing MR contrast agent. The needle was removed and a dressing was applied. The patient was given postprocedural instructions and sent to the MR suite for imaging. COMPARISON: [facility], CR, XR HIP W PEL IF DONE RT 2V, 12/15/2023, 13:23. FINDINGS: A single fluoroscopic spot image demonstrates intra-articular location of injected iodinated contrast. IMPRESSION: Successful fluoroscopically guided administration of dilute Gadolinium solution into the hip joint for MR arthrogram. Dictated by: Rl Cadena M.D. on 01/09/2024 at 14:25 Approved by: Rl Cadena M.D. on 01/09/2024 at 14:25
--- NOTE | 2024-01-09 14:10 | DI.MRI.S_ITS ---
PROCEDURE: MR HIP RT W CON INDICATIONS: Persistent right hip pain, looking for torn labrum TECHNIQUE: After the administration of 10 mL of dilute intra-articular Gadolinium contrast, coronal STIR of the bony pelvis; coronal and oblique axial T1 spin echo with fat saturation, axial T2 fast spin echo with fat saturation, sagittal T1 spin echo with and without fat saturation of the involved hip. COMPARISON: [facility], CR, XR HIP W PEL IF DONE RT 2V, 12/15/2023, 13:23. FINDINGS: Image quality: Excellent. Bones and joints: Mild fibrovascular end plate change at L5-S1. The visualized sacrum is intact. No marrow edema of bilateral posterior iliac wing. Severe degenerate changes of the right hip with joint space narrowing, and moderate subchondral marrow edema of the right acetabulum and the right femoral head. Moderate right hip effusion with synovitis. No avascular necrosis of the right femoral head. Mild degenerative change of the left hip with mild subchondral marrow edema in the superior acetabulum. No acute fracture of either femoral head. Tendons and ligaments: The right iliopsoas tendon is unremarkable. Mild muscle edema of the right adductors, representing mild muscle strain. The right hamstring tendon is unremarkable. The right gluteal medius and gluteal minimus is unremarkable. Labrum and cartilage: Diffuse labral degeneration and tear. High-grade chondral loss of the right femoral head and the acetabulum. Soft tissues: Moderate enlargement of the prostate. IMPRESSION: 1. Severe degenerative changes of the right hip. Diffuse labral tear of the right hip. Moderate right hip effusion with synovitis. 2. Mild muscle strain of the right adductors muscle. 3. Mild degenerative changes of the left hip. Dictated by: Manda Sims M.D. on 01/09/2024 at 19:45 Approved by: Manda Sims M.D. on 01/09/2024 at 19:52
[2024-01-09] MEDS: SODIUM CHLORIDE 0.9 % 20 ML VIAL IV (14:11)
[2024-01-09] MEDS: LIDOCAINE 1% 20 ML INJ (14:11)
== END ==
PROVIDERS: PCP Family Medicine; Referring Provider Family Medicine; Visit Provider Family Medicine
DX: S73.191A Other sprain of right hip, initial encounter (principal); S76.011A Strain of muscle, fascia and tendon of right hip, initial encounter; M25.551 Pain in right hip; M25.451 Effusion, right hip; M65.88 Other synovitis and tenosynovitis, other site
CPT/HCPCS: 27093; 73525; 73722; A9579; Q9967

== ENCOUNTER → 2024-01-26 17:23 | Outpatient (CLI) | payer MEDICARE, OTHER, SELFPAY ==
[2024-01-26 17:43] LABS: Add Manual Diff / Slide Review NO; Basophils Absolute Auto 100 /uL (0-100); Eosinophils Absolute Auto 100 /uL (0-450); Eosinophils Percent Auto 1.3 % (2-4); Hematocrit 41.7 % (41-53); Hemoglobin 14.2 g/dL (13.5-17.5); Lymphocytes Absolute Auto 1400 /uL (1100-4500); Mean Corpuscular HGB Conc 33.9 % (30-36); Mean Corpuscular Hemoglobin 31.2 PG (26-34); Mean Corpuscular Volume 91.8 fL (80-100); Monocytes Absolute Auto 500 /uL (0-900); Monocytes Percent Auto 8.5 % (3-14); Neutrophils Absolute Auto 3300 /uL (1500-7000); Neutrophils Percent Auto 62.2 % (50-75); Platelet Count 137 X10^3/uL (150-400); Red Blood Cell Count 4.54 X10^6/uL (4.5-5.9); Red Cell Distribution Width 13.9 % (11.6-14.8); White Blood Cell Count 5.3 X10^3/uL (4.5-11.0)
--- NOTE | 2024-01-26 17:54 | EKG_ITS ---
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
[2024-01-26 17:56] LABS: Hemoglobin A1C% w Est Avg Glu 5.6 % (4.0-6.0)
[2024-01-26 18:10] LABS: Albumin 4.3 g/dL (3.5-5.0); BUN Creatinine Ratio 19.2 (6-22); Blood Urea Nitrogen 20 mg/dL (9-20); Calcium 9.2 mg/dL (8.4-10.2); Carbon Dioxide 23 mmol/L (22-32); Chloride 109 mmol/L (98-107); Estimated Glomerular Filt Rate > 60 mL/min (>60); Glucose 103 mg/dL (80-110); HEMOLYSIS < 15 (0-50); Potassium 4.2 mmol/L (3.4-5.1); Sodium 138 mmol/L (137-145)
[2024-01-26 18:18] LABS: Prealbumin 26.2 mg/dL (17.6-36.0)
== END ==
PROVIDERS: PCP Family Medicine; Referring Provider Orthopaedic Surgery Adult Reconstructive Orthopaedic Surgery; Visit Provider Orthopaedic Surgery Adult Reconstructive Orthopaedic Surgery
DX: Z01.818 Encounter for other preprocedural examination (principal); E55.9 Vitamin D deficiency, unspecified; R73.9 Hyperglycemia, unspecified; R77.0 Abnormality of albumin; Z01.812 Encounter for preprocedural laboratory examination
CPT/HCPCS: 36415; 80048; 82040; 82306; 83036; 84134; 85025; 93005